=== PATIENT | female | born 1930 | race Two or more races ===

== ENCOUNTER 2017-02-21 19:11 | Observation (INO) | payer BC, MEDICARE ==
[2017-02-21] MEDS ORDERED: ASPIRIN 81 MG TABLET, CHEWABLE PO ONE (19:25)
--- NOTE | 2017-02-21 20:37 | ER Document Report ---
ED Medical Screen (RME) - General Chief Complaint: Chest Pain Stated Complaint: CHEST PAIN Notes: The patient is an 86-year-old female, past medical history hypertension, CAD s/ p stents in 2007, presents with an episode of left-sided chest pain radiating to her right shoulder that started while she was watching TV earlier today. She took a baby aspirin at home. The pain resolved after she arrived to the emergency room and was given 3 baby aspirin. She denies current chest pain, shortness of breath, fevers, current back pain, numbness, tingling, nausea, vomiting or abdominal pain. I have greeted and performed a rapid initial assessment of this patient. A comprehensive ED assessment and evaluation of the patient, analysis of test results and completion of the medical decision making process will be conducted by additional ED providers. - Related Data Allergies/Adverse Reactions: No Known Allergies Allergy (Unverified 02/21/17 19:22) Past Medical History Renal/ Medical History: Denies: Hx Peritoneal Dialysis Physical Exam - Vital signs Vitals: Resp 18 02/21/17 19:22 Course - Vital Signs Vital signs: Temp Pulse Resp BP Pulse Ox 98.0 F 81 18 150/81 H 100 02/21/17 19:23 02/21/17 19:23 02/21/17 19:22 02/21/17 19:23 02/21/17 19:23
[2017-02-21 21:27] LABS: ALANINE AMINOTRANSFERASE 33 U/L (9-52); ALBUMIN 4.9 g/dL (3.5-5.0); ALKALINE PHOSPHATASE 68 U/L (38-126); ANION GAP 13 (5-19); ASPARTATE AMINO TRANSFERASE 33 U/L (14-36); BILIRUBIN,DIRECT 0.2 mg/dL (0.0-0.4); BILIRUBIN,TOTAL 0.5 mg/dL (0.2-1.3); BLOOD UREA NITROGEN 14 mg/dL (7-20); CARBON DIOXIDE 25 mmol/L (22-30); CHLORIDE 104 mmol/L (98-107); CREATINE KINASE 40 U/L (30-135); CREATININE RESULT 0.55 mg/dL (0.52-1.25); GLUCOSE 102 mg/dL (75-110); LIPASE 260.5 U/L (23-300); SODIUM 141.7 mmol/L (137-145); TOTAL PROTEIN 7.5 g/dL (6.3-8.2)
[2017-02-21 21:37] LABS: TROPONIN I < 0.012 ng/mL
--- NOTE | 2017-02-21 22:03 | ER Document Report ---
ED General - General Chief Complaint: Chest Pain Stated Complaint: CHEST PAIN Notes: Patient is a 86 year old female presents with complaint of sudden onset of left- sided chest pain rated into her right shoulder. She said it radiated from the left side across her right side and into right shoulder. She says it lasted a few hours. It started while she was watching TV. Nothing made the pain better or worse. She has history of coronary disease. She is to stents. These were placed in 2007. Her last stress test was 2 years ago in [place]. No fevers. No infections. Her data designer is Dr. Berrios at [facility]. She is currently pain-free. - Related Data Allergies/Adverse Reactions: No Known Allergies Allergy (Unverified 02/21/17 19:22) Past Medical History - Social History Smoking Status: Never Smoker Frequency of alcohol use: None Drug Abuse: None Family History: Reviewed & Not Pertinent Renal/ Medical History: Denies: Hx Peritoneal Dialysis Review of Systems - Review of Systems Notes: My Normal Review Basic REVIEW OF SYSTEMS: CONSTITUTIONAL : Denies fever, chills, or sweats. Denies recent illness. EENT: Denies eye, ear, throat, or mouth pain or symptoms. Denies nasal or sinus congestion. CARDIOVASCULAR: Chest pain RESPIRATORY: Denies cough, cold, or chest congestion. Denies shortness of breath, difficulty breathing, or wheezing. GASTROINTESTINAL: Denies abdominal pain. Denies nausea, vomiting, or diarrhea. MUSCULOSKELETAL: Denies neck or back pain or joint pain or swelling. SKIN: Denies rash or skin lesions. NEUROLOGICAL: Denies altered mental status or loss of consciousness. Denies headache. Denies weakness or paralysis or loss of use of either side. Denies problems with gait or speech. Denies sensory or motor loss.. ALL OTHER SYSTEMS REVIEWED AND NEGATIVE. Physical Exam - Vital signs Vitals: Resp 18 02/21/17 19:22 - Notes Notes: General Appearance: Well nourished, alert, cooperative, no acute distress, no obvious discomfort. Vitals: reviewed, See vital signs table. Head: no swelling or tenderness to the head Eyes: PERRL, EOMI, Conjuctiva clear Mouth: No decreasd moisture Neck: Supple, no neck tenderness, No thyromegaly Lungs: No wheezing, No rales, No rhonci, No accessory muscle use, good air exchange bilaterally. Heart: Normal rate, Regular rythm, No murmur, no rub Chest wall: No rib useful pain to palpation of anterior chest wall. Abdomen: Normal BS, soft, No rigidity, No abdominal tenderness, No guarding, no rebound, no abdominal masses, no organomegaly Extremities: strength 5/5 in all extremities, good pulses in all extremities, no swelling or tenderness in the extremities, no edema. Skin: warm, dry, appropriate color, no rash Neuro: speech clear, oriented x 3, normal affect, responds appropriately to questions. Course - Vital Signs Vital signs: Temp Pulse Resp BP Pulse Ox 98.0 F 81 18 150/81 H 100 02/21/17 19:23 02/21/17 19:23 02/21/17 19:22 02/21/17 19:23 02/21/17 19:23 - Laboratory Result Diagrams: 02/21/17 20:45 Laboratory results interpreted by me: 02/21/17 20:45 Calcium 11.0 H - EKG Interpretation by Me Additional EKG results interpreted by me: 02/21/17 22:03 EKG is reviewed and interpreted by me. EKG shows normal sinus rhythm with rate of [address] segment elevation or depression. No ischemic T wave inversions. FL level, QRS duration, QTC intervals are within normal range. No old EKG available for comparison. - Transfer of Care Notes: 02/21/17 22:17 Patient's cardiac enzymes and EKG are negative. She's currently chest pain- free. Feel that observation admission is appropriate being that she is 86 with a history of coronary artery disease and stent placement. I did speak with the hospitalist who agrees with the patient. Dictation of this chart was performed using voice recognition software; therefore, there may be some unintended grammatical errors. Discharge - Discharge Clinical Impression: Chest pain Qualifiers: Chest pain type: unspecified Qualified Code(s): R07.9 - Chest pain, unspecified Condition: Stable Disposition: ADMITTED OBSERVATION Admitting Provider: Hospitalist Unit Admitted: Telemetry
[2017-02-21] MEDS ORDERED: MAG HYDROX/AL HYDROX/SIMETH SUSP 30 ML UDCUP PO PRN (22:16)
[2017-02-21] MEDS ORDERED: NITROGLYCERIN 0.4 MG/TAB 25 TAB/BOTTLE SL PRN (22:16)
[2017-02-21] MEDS ORDERED: HYDRALAZINE HCL INJ/PF 20 MG/1 ML SDV IV PRN (22:22)
[2017-02-21 22:24] LABS: ABSOLUTE EOSINOPHILS # (AUTO) 0.1 10^3/uL (0.0-0.6); ABSOLUTE LYMPHOCYTES (AUTO) 1.8 10^3/uL (0.5-4.7); ABSOLUTE MONOCYTES (AUTO) 0.7 10^3/uL (0.1-1.4); ABSOLUTE NEUT (AUTO) 4.3 10^3/uL (1.7-8.2); BASOPHILS % (AUTO) 0.7 % (0-2); EOSINOPHILS % (AUTO) 0.8 % (0-6); HEMATOCRIT 42.7 % (36.0-47.0); HEMOGLOBIN 13.9 g/dL (12.0-15.5); LYMPHOCYTES % (AUTO) 26.5 % (13-45); MEAN CORPUSCULAR HEMOGLOBIN 24.9 pg (27.0-33.4); MEAN CORPUSCULAR HGB CONC 32.5 g/dL (32.0-36.0); MEAN CORPUSCULAR VOLUME 77 fl (80-97); MONOCYTES % (AUTO) 9.7 % (3-13); RED BLOOD COUNT 5.58 10^6/uL (3.72-5.28); SEGMENTED NEUTROPHILS % (AUTO) 62.3 % (42-78); WHITE BLOOD COUNT 6.9 10^3/uL (4.0-10.5)
[2017-02-21] MEDS ORDERED: LACTULOSE SYRUP 20 GM/30 ML UDCUP PO ONE (22:30)
[2017-02-21] MEDS ORDERED: ATORVASTATIN CALCIUM 80 MG TABLET PO SCH (22:30)
[2017-02-22 03:25] LABS: ABSOLUTE LYMPHOCYTES (AUTO) 1.5 10^3/uL (0.5-4.7); ABSOLUTE MONOCYTES (AUTO) 0.6 10^3/uL (0.1-1.4); ABSOLUTE NEUT (AUTO) 2.8 10^3/uL (1.7-8.2); BASOPHILS % (AUTO) 0.8 % (0-2); EOSINOPHILS % (AUTO) 0.8 % (0-6); HEMOGLOBIN 12.9 g/dL (12.0-15.5); HGB HCT DIFFERENCE -0.3; LYMPHOCYTES % (AUTO) 29.8 % (13-45); MEAN CORPUSCULAR VOLUME 76 fl (80-97); MONOCYTES % (AUTO) 11.8 % (3-13); RED BLOOD COUNT 5.15 10^6/uL (3.72-5.28); RED CELL DISTRIBUTION WIDTH 14.8 % (11.5-14.0); SEGMENTED NEUTROPHILS % (AUTO) 56.8 % (42-78); WHITE BLOOD COUNT 4.9 10^3/uL (4.0-10.5)
[2017-02-22 03:36] LABS: ANION GAP 10 (5-19); BLOOD UREA NITROGEN 11 mg/dL (7-20); CALCIUM 10.3 mg/dL (8.4-10.2); CARBON DIOXIDE 24 mmol/L (22-30); CHLORIDE 109 mmol/L (98-107); CHOLESTEROL 144.82 mg/dL (0-200); CREATINE KINASE 27 U/L (30-135); Direct HDL 68 mg/dL (>40); GLUCOSE 90 mg/dL (75-110); SODIUM 143.2 mmol/L (137-145); TRIGLYCERIDES 46 mg/dL (<150)
[2017-02-22 03:47] LABS: DIRECT LDL 61 mg/dL (<100)
[2017-02-22 03:48] LABS: CREATINE KINASE MB 1.02 ng/mL (<4.55)
[2017-02-22 03:58] LABS: TROPONIN I < 0.012 ng/mL
--- NOTE | 2017-02-22 05:42 | PDOC H&P ---
History of Present Illness Admission Date/PCP: 02/21/17 22:16 BRENNAN ROMAN PA-C Patient complains of: Chest pain with radiation to back and shoulder History of Present Illness: JUNE DAVISON is a 86 year old female with a past medical history of coronary artery disease with a stent in 2007 who had been her usual state of health until approximately 3 hours prior to presentation having intermittent waxing and waning pain which was impossible to characterize on the right side of her chest radiating to the right side of her shoulder and back. No palpitations shortness of breath nausea vomiting. Unable to identify alleviating or exacerbating factors. Patient states her last episode was in 2007 when she had a heart attack. She has had 2 negative treadmill stress test in the last 2 years consecutively. Obtained by cardiology at [facility] in [place] and cardiology in [place]. She denies having symptoms prompting her stress testing. In the emergency room she is pain-free and has an unremarkable workup which is referred to the hospitalist for observation. Patient denies episodes of pain or shortness of breath preventing or interrupting her daily 1 hour walks. She states she looks forward to running on the treadmill. Past Medical History Cardiac Medical History: Reports: Coronary Artery Disease, Hypertension Past Surgical History Past Surgical History: Reports: Cardiac Catheterization, Coronary Stent Social History Information Source: Parent, Relative Lives with: Family Smoking Status: Never Smoker Hx Recreational Drug Use: No Drugs: None Hx Prescription Drug Abuse: No Past Social History Note: Son is at bedside for interpretation - Advance Directive Resuscitation Status: Full Code Family History Family History: Hypertension Parental Family History Reviewed: Yes Children Family History Reviewed: Yes Sibling(s) Family History Reviewed.: Yes Medication/Allergy Allergies/Adverse Reactions: No Known Allergies Allergy (Unverified 02/21/17 19:22) Review of Systems Constitutional: ABSENT: chills, fever(s), headache(s), weight gain, weight loss Eyes: ABSENT: visual disturbances Ears: ABSENT: hearing changes Cardiovascular: ABSENT: chest pain, dyspnea on exertion, edema, orthropnea, palpitations Respiratory: ABSENT: cough, hemoptysis Gastrointestinal: ABSENT: abdominal pain, constipation, diarrhea, hematemesis, hematochezia, nausea, vomiting Genitourinary: ABSENT: dysuria, hematuria Musculoskeletal: ABSENT: joint swelling Integumentary: ABSENT: rash, wounds Neurological: ABSENT: abnormal gait, abnormal speech, confusion, dizziness, focal weakness, syncope Psychiatric: ABSENT: anxiety, depression, homidical ideation, suicidal ideation Endocrine: ABSENT: cold intolerance, heat intolerance, polydipsia, polyuria Hematologic/Lymphatic: ABSENT: easy bleeding, easy bruising Physical Exam Vital Signs: Temp Pulse Resp BP Pulse Ox 97.4 F 67 13 133/81 H 98 02/21/17 22:16 02/22/17 01:59 02/21/17 23:11 02/21/17 23:11 02/21/17 23:11 General appearance: PRESENT: no acute distress, well-developed, well-nourished Head exam: PRESENT: atraumatic, normocephalic Eye exam: PRESENT: conjunctiva pink, EOMI, PERRLA. ABSENT: scleral icterus Ear exam: PRESENT: normal external ear exam Mouth exam: PRESENT: moist, tongue midline Neck exam: ABSENT: carotid bruit, JVD, lymphadenopathy, thyromegaly Respiratory exam: PRESENT: clear to auscultation benny. ABSENT: rales, rhonchi, wheezes Cardiovascular exam: PRESENT: RRR. ABSENT: diastolic murmur, rubs, systolic murmur Pulses: PRESENT: normal dorsalis pedis pul Vascular exam: PRESENT: normal capillary refill GI/Abdominal exam: PRESENT: normal bowel sounds, soft. ABSENT: distended, guarding, mass, organolmegaly, rebound, tenderness Rectal exam: PRESENT: deferred Extremities exam: PRESENT: full ROM. ABSENT: calf tenderness, clubbing, pedal edema Neurological exam: PRESENT: alert, awake, oriented to person, oriented to place , oriented to time, oriented to situation, CN II-XII grossly intact. ABSENT: motor sensory deficit Psychiatric exam: PRESENT: appropriate affect, normal mood. ABSENT: homicidal ideation, suicidal ideation Skin exam: PRESENT: dry, intact, warm. ABSENT: cyanosis, rash Results Laboratory Results: 02/22/17 03:15 02/22/17 03:15 02/22/17 02/22/17 03:15 03:15 WBC 4.9 RBC 5.15 Hgb 12.9 Hct 39.0 MCV 76 L MCH 25.0 L MCHC 33.0 RDW 14.8 H Plt Count 157 Seg Neutrophils % 56.8 Lymphocytes % 29.8 Monocytes % 11.8 Eosinophils % 0.8 Basophils % 0.8 Absolute Neutrophils 2.8 Absolute Lymphocytes 1.5 Absolute Monocytes 0.6 Absolute Eosinophils 0.0 Absolute Basophils 0.0 Sodium 143.2 Potassium 4.0 D Chloride 109 H Carbon Dioxide 24 Anion Gap 10 BUN 11 Creatinine 0.50 L Est GFR ( Amer) > 60 Est GFR (Non-Af Amer) > 60 Glucose 90 Calcium 10.3 H Triglycerides 46 Cholesterol 144.82 LDL Cholesterol Direct 61 VLDL Cholesterol 9.0 L HDL Cholesterol 68 02/22/17 02/22/17 03:15 03:15 Creatine Kinase 27 L CK-MB (CK-2) 1.02 Troponin I < 0.012 Impressions: Chest X-Ray 02/21/17 20:39 IMPRESSION: No acute cardiopulmonary findings. Assessment & Plan - Diagnosis (1) Chest pain Qualifiers: Chest pain type: unspecified Qualified Code(s): R07.9 - Chest pain, unspecified Is this a current diagnosis for this admission?: YesPlan: Atypical chest pain with atypical history I'll proceed with observation with chest pain care set evaluation of acute coronary syndrome and risk factors for coronary artery disease, obtaining medical records prior to consideration of further testing (2) Hypertension Is this a current diagnosis for this admission?: YesPlan: Outpatient regiment with when necessary TONIO inhibitor - Time Time Spent: 30 to 50 Minutes
[2017-02-22] MEDS ORDERED: HEPARIN SOD (PORCINE) 5,000 UNIT/ML 1 ML SYRINGE SUBCUT SCH (06:00)
--- NOTE | 2017-02-22 08:31 | EKG REPORT ---
SEVERITY:- NORMAL ECG - SINUS RHYTHM : Confirmed by: Dat Kline MD 22-Feb-2017 08:30:36
[2017-02-22 09:19] VITALS: BP 128/65
[2017-02-22 09:35] LABS: CREATINE KINASE MB 0.98 ng/mL (<4.55)
[2017-02-22 09:43] LABS: TROPONIN I < 0.012 ng/mL
[2017-02-22] MEDS ORDERED: AMLODIPINE BESYLATE 10 MG TABLET PO SCH (10:00)
[2017-02-22] MEDS ORDERED: DOCUSATE SODIUM 100 MG CAPSULE PO SCH (10:00)
[2017-02-22] MEDS ORDERED: METOPROLOL TARTRATE 50 MG TABLET PO SCH ×2 (10:00)
[2017-02-22] MEDS ORDERED: LISINOPRIL 10 MG TABLET PO SCH (10:00)
[2017-02-22] MEDS ORDERED: (PENDING PHARMACY ID) (Lisinopril [Zestril] 20 MG) PO SCH (10:00)
[2017-02-23] MEDS ORDERED: ASPIRIN 81 MG TABLET, CHEWABLE PO SCH (10:00)
--- NOTE | 2017-02-23 12:06 | PDOC DISCHARGE SUMMARY ---
General - Admit/Disc Date/PCP Admission Date/Primary Care Provider: 02/21/17 22:16 BRENNAN ROMAN PA-C Outpatient wrapper and preserver: Dr. Berrios Discharge Date: 02/22/17 - Discharge Diagnosis (1) Chest pain Is this a current diagnosis for this admission?: Yes (2) Coronary artery disease Is this a current diagnosis for this admission?: Yes (3) Hypertension Is this a current diagnosis for this admission?: Yes - Additional Information Resuscitation Status: Full Code Discharge Diet: As Tolerated, Cardiac Discharge Activity: Activity As Tolerated Home Medications: Amlodipine Besylate [Norvasc 10 mg Tablet] 10 mg PO DAILY 02/22/17 Aspirin [Aspirin 81 mg Chewable Tablet] 81 mg PO DAILY 02/22/17 Atorvastatin Calcium [Lipitor 20 mg Tablet] 02/22/17 Lisinopril [Zestril] 20 mg PO DAILY 02/22/17 Metoprolol Tartrate [Lopressor 50 mg Tablet] 50 mg PO BID 02/22/17 Nitroglycerin [Nitrostat 0.4 mg (1/150 Gr) Tabs 25/Bottle] 1 tab SL Q5MP PRN #0 bottle 02/22/17 History of Present Illness Patient complains of: Chest pain History of Present Illness: JUNE DAVISON is a 86 year old female with a past medical history of coronary artery disease with a stent in 2007 who had been her usual state of health until approximately 3 hours prior to presentation having intermittent waxing and waning pain which was impossible to characterize on the right side of her chest radiating to the right side of her shoulder and back. No palpitations shortness of breath nausea vomiting. Unable to identify alleviating or exacerbating factors. Patient states her last episode was in 2007 when she had a heart attack. She has had 2 negative treadmill stress test in the last 2 years consecutively. Obtained by cardiology at [facility] in [place] and cardiology in [place]. She denies having symptoms prompting her stress testing. In the emergency room she is pain-free and has an unremarkable workup which is referred to the hospitalist for observation. Patient denies episodes of pain or shortness of breath preventing or interrupting her daily 1 hour walks. She states she looks forward to running on the treadmill. Hospital Course Hospital Course: The patient was observed in a continues telemetry unit, serial cardiac enzymes were obtained which were nonsuggestive. The patient's EKG revealed no acute changes and the patient had no events on cafeteria monitor. Patient had no further replication of symptoms. The patient is followed by Dr. Berrios cardiology here in [place]. The patient has declined staying overnight for cardiac stress test and would like to follow-up of with her primary wrapper and preserver in outpatient basis given her resolution of symptoms. Physical Exam Vital Signs: Temp Pulse Resp BP Pulse Ox 97.9 F 64 18 128/65 H 99 02/22/17 10:38 02/22/17 10:38 02/22/17 10:38 02/22/17 10:38 02/22/17 10:38 Intake & Output 02/21/17 02/22/17 02/23/17 23:59 23:59 23:59 Intake Total 3 Balance 3 Weight 54.2 kg General appearance: PRESENT: no acute distress, cooperative, well-developed, well-nourished Head exam: PRESENT: atraumatic, normocephalic Eye exam: PRESENT: conjunctiva pink, EOMI, PERRLA. ABSENT: scleral icterus Ear exam: PRESENT: normal external ear exam Mouth exam: PRESENT: moist, tongue midline Neck exam: ABSENT: carotid bruit, JVD, lymphadenopathy, thyromegaly Respiratory exam: PRESENT: clear to auscultation benny, symmetrical, unlabored. ABSENT: rales, rhonchi, tachypnea, wheezes Cardiovascular exam: PRESENT: RRR. ABSENT: diastolic murmur, rubs, systolic murmur Pulses: PRESENT: normal dorsalis pedis pul Vascular exam: PRESENT: normal capillary refill GI/Abdominal exam: PRESENT: normal bowel sounds, soft. ABSENT: distended, guarding, mass, organolmegaly, rebound, tenderness Rectal exam: PRESENT: deferred Extremities exam: PRESENT: full ROM. ABSENT: calf tenderness, clubbing, pedal edema Neurological exam: PRESENT: alert, awake, oriented to person, oriented to place , oriented to time, oriented to situation, CN II-XII grossly intact. ABSENT: motor sensory deficit Psychiatric exam: PRESENT: appropriate affect, normal mood. ABSENT: homicidal ideation, suicidal ideation Skin exam: PRESENT: dry, intact, warm. ABSENT: cyanosis, rash Results Laboratory Results: Labs- Last Values WBC 4.9 10^3/uL (4.0-10.5) 02/22/17 03:15 RBC 5.15 10^6/uL (3.72-5.28) 02/22/17 03:15 Hgb 12.9 g/dL (12.0-15.5) 02/22/17 03:15 Hct 39.0 % (36.0-47.0) 02/22/17 03:15 MCV 76 fl (80-97) L 02/22/17 03:15 MCH 25.0 pg (27.0-33.4) L 02/22/17 03:15 MCHC 33.0 g/dL (32.0-36.0) 02/22/17 03:15 RDW 14.8 % (11.5-14.0) H 02/22/17 03:15 Plt Count 157 10^3/uL (150-450) 02/22/17 03:15 Seg Neutrophils % 56.8 % (42-78) 02/22/17 03:15 Lymphocytes % 29.8 % (13-45) 02/22/17 03:15 Monocytes % 11.8 % (3-13) 02/22/17 03:15 Eosinophils % 0.8 % (0-6) 02/22/17 03:15 Basophils % 0.8 % (0-2) 02/22/17 03:15 Absolute Neutrophils 2.8 10^3/uL (1.7-8.2) 02/22/17 03:15 Absolute Lymphocytes 1.5 10^3/uL (0.5-4.7) 02/22/17 03:15 Absolute Monocytes 0.6 10^3/uL (0.1-1.4) 02/22/17 03:15 Absolute Eosinophils 0.0 10^3/uL (0.0-0.6) 02/22/17 03:15 Absolute Basophils 0.0 10^3/uL (0.0-0.2) 02/22/17 03:15 Sodium 143.2 mmol/L (137-145) 02/22/17 03:15 Potassium 4.0 mmol/L (3.6-5.0) D 02/22/17 03:15 Chloride 109 mmol/L (98-107) H 02/22/17 03:15 Carbon Dioxide 24 mmol/L (22-30) 02/22/17 03:15 Anion Gap 10 (5-19) 02/22/17 03:15 BUN 11 mg/dL (7-20) 02/22/17 03:15 Creatinine 0.50 mg/dL (0.52-1.25) L 02/22/17 03:15 Est GFR ( Amer) > 60 (>60) 02/22/17 03:15 Est GFR (Non-Af Amer) > 60 (>60) 02/22/17 03:15 Glucose 90 mg/dL (75-110) 02/22/17 03:15 Calcium 10.3 mg/dL (8.4-10.2) H 02/22/17 03:15 Total Bilirubin 0.5 mg/dL (0.2-1.3) 02/21/17 20:45 Direct Bilirubin 0.2 mg/dL (0.0-0.4) 02/21/17 20:45 Indirect Bilirubin Not Reportable 02/21/17 20:45 Neonat Total Bilirubin Not Reportable 02/21/17 20:45 AST 33 U/L (14-36) 02/21/17 20:45 ALT 33 U/L (9-52) 02/21/17 20:45 Alkaline Phosphatase 68 U/L (38-126) 02/21/17 20:45 Creatine Kinase 27 U/L (30-135) L 02/22/17 03:15 CK-MB (CK-2) 0.98 ng/mL (<4.55) 02/22/17 08:51 Troponin I < 0.012 ng/mL 02/22/17 08:51 NT-Pro-B Natriuret Pep 56 pg/mL (<450) 02/21/17 20:45 Total Protein 7.5 g/dL (6.3-8.2) 02/21/17 20:45 Albumin 4.9 g/dL (3.5-5.0) 02/21/17 20:45 Triglycerides 46 mg/dL (<150) 02/22/17 03:15 Cholesterol 144.82 mg/dL (0-200) 02/22/17 03:15 LDL Cholesterol Direct 61 mg/dL (<100) 02/22/17 03:15 VLDL Cholesterol 9.0 mg/dL (10-31) L 02/22/17 03:15 HDL Cholesterol 68 mg/dL (>40) 02/22/17 03:15 Lipase 260.5 U/L (23-300) 02/21/17 20:45 Impressions: Chest X-Ray 02/21/17 20:39 IMPRESSION: No acute cardiopulmonary findings. Qualifiers PATEINT BEING DISCHARGED WITH ANY OF THE FOLLOWING DIAGNOSIS?: No Plan Discharge Plan: The patient is follow with her wrapper and preserver within one week for hospital follow- up. Time Spent: Greater than 30 Minutes
== END 2017-02-22 11:14 | disposition home or self-care (01) ==
LOC: ER 19:11 → EH 22:16 → 5 02-22 01:40
PROVIDERS: ADMIT Internal Medicine; ATTEND Internal Medicine
DX: R07.89 Other chest pain (principal); I25.10 Atherosclerotic heart disease of native coronary artery without angina pectoris; I10 Essential (primary) hypertension; I25.2 Old myocardial infarction; Z79.899 Other long term (current) drug therapy; Z79.82 Long term (current) use of aspirin; Z95.5 Presence of coronary angioplasty implant and graft; Z82.49 Family history of ischemic heart disease and other diseases of the circulatory system
CPT/HCPCS: 93005; 99285; 36415 ×2; 82553 ×2; 82550 ×2; 83690; 85025 ×2; 80076; 80048 ×2; 84484 ×2; 80061; 83880; 71020; 93010; G0378 ×2; J1644; J3490

== ENCOUNTER 2020-03-02 07:07 | Emergency (ER) | payer MEDICARE, OTHER ==
[2020-03-02 08:09] LABS: ABSOLUTE MONOCYTES (AUTO) 0.3 10^3/uL (0.1-1.4); ABSOLUTE NEUT (AUTO) 3.7 10^3/uL (1.7-8.2); BASOPHILS % (AUTO) 0.8 % (0-2); EOSINOPHILS % (AUTO) 0.5 % (0-6); HEMATOCRIT 41.9 % (36.0-47.0); HEMOGLOBIN 14.1 g/dL (12.0-15.5); LYMPHOCYTES % (AUTO) 19.4 % (13-45); MEAN CORPUSCULAR HGB CONC 33.6 g/dL (32.0-36.0); MEAN CORPUSCULAR VOLUME 77 fl (80-97); MONOCYTES % (AUTO) 5.2 % (3-13); PLATELET COUNT 149 10^3/uL (150-450); RED BLOOD COUNT 5.42 10^6/uL (3.72-5.28); RED CELL DISTRIBUTION WIDTH 16.6 % (11.5-14.0); SEGMENTED NEUTROPHILS % (AUTO) 74.1 % (42-78); TOTAL CELLS COUNTED % (AUTO) 100 %; WHITE BLOOD COUNT 5.1 10^3/uL (4.0-10.5)
[2020-03-02 08:30] LABS: ALBUMIN 4.6 g/dL (3.5-5.0); ALKALINE PHOSPHATASE 61 U/L (38-126); ANION GAP 7 (5-19); ASPARTATE AMINO TRANSFERASE 25 U/L (14-36); BILIRUBIN,TOTAL 0.6 mg/dL (0.2-1.3); BLOOD UREA NITROGEN 17 mg/dL (7-20); CALCIUM 10.9 mg/dL (8.4-10.2); CARBON DIOXIDE 26 mmol/L (22-30); CHLORIDE 105 mmol/L (98-107); GLUCOSE 125 mg/dL (75-110); POTASSIUM 3.7 mmol/L (3.6-5.0); TOTAL PROTEIN 7.2 g/dL (6.3-8.2)
--- NOTE | 2020-03-02 08:38 | RADIOLOGY REPORT (SQ) ---
EXAM DESCRIPTION: CT HEAD WITHOUT IMAGES COMPLETED DATE/TIME: 03/02/2020 8:22 am REASON FOR STUDY: dizzy COMPARISON: None. TECHNIQUE: Axial images acquired through the brain without intravenous contrast. Images reviewed wi th bone, brain and subdural windows. Additional sagittal and coronal reconstructions were generated. Images stored on PACS. All CT scanners at this facility use dose modulation, iterative reconstruction, and/or weight based d osing when appropriate to reduce radiation dose to as low as reasonably achievable (ALARA). [facility]: Dose Right [facility]: CareDose [facility]: Dose Right [facility]: Teradose 4D [facility]: [employer] RADIATION DOSE: CT Rad equipment meets quality standard of care and radiation dose reduction techniq ues were employed. CTDIvol: 53.2 mGy. DLP: 964 mGy-cm. mGy. LIMITATIONS: None. FINDINGS: VENTRICLES: Normal size and contour for patient age. CEREBRUM: No masses. No hemorrhage. No midline shift. No evidence for acute infarction. Normal gra y/white matter differentiation. No areas of low density in the white matter. CEREBELLUM: No masses. No hemorrhage. No alteration of density. No evidence for acute infarction. EXTRAAXIAL SPACES: No fluid collections. No masses. Mild prominence compatible with parenchymal vol ume loss. ORBITS AND GLOBE: No intra- or extraconal masses. Normal contour of globe without masses. CALVARIUM: No fracture. PARANASAL SINUSES: No fluid or mucosal thickening. SOFT TISSUES: Few scattered soft tissue nodules overlying the bilateral parietal calvarium with scatt ered internal calcifications, possibly sebaceous cyst. OTHER: No other significant finding. IMPRESSION: No evidence of acute intracranial process. EVIDENCE OF ACUTE STROKE: NO. COMMENT: Quality ID # [id number]: Final reports with documentation of one or more dose reduction techniques (e.g., Automated exposure control, adjustment of the mA and/or kV according to patient size, use of iterative reconstruction technique) TECHNICAL DOCUMENTATION: JOB ID: [id number] 2010 [employer]- All Rights Reserved Reading location - IP/workstation name: [email or web address]
[2020-03-02] MEDS ORDERED: MECLIZINE HCL 25 MG TABLET PO ONE (08:51)
[2020-03-02] MEDS ORDERED: ONDANSETRON HCL INJ/PF 4 MG/2 ML SDV IV ONE (09:29)
[2020-03-02 11:58] LABS: AMORPHOUS SEDIMENT,URINE TRACE /HPF; APPEARANCE,URINE SLIGHTLY-CLOUDY; BILIRUBIN,URINE NEGATIVE (NEGATIVE); COLOR,URINE YELLOW; GLUCOSE, URINE NEGATIVE (NEGATIVE); KETONES,URINE TRACE mg/dL (NEGATIVE); PROTEIN,URINE NEGATIVE (NEGATIVE); URINE SPECIFIC GRAVITY 1.008; UROBILINOGEN,URINE NEGATIVE mg/dL (<2.0)
--- NOTE | 2020-03-02 12:32 | RADIOLOGY REPORT (SQ) ---
EXAM DESCRIPTION: MRI HEAD WITHOUT IMAGES COMPLETED DATE/TIME: 03/02/2020 12:12 pm REASON FOR STUDY: dizzy COMPARISON: None. TECHNIQUE: Multiplanar imaging includes non-contrasted T1, T2, FLAIR, and diffusion with ADC map seq uences. Images stored on PACS. LIMITATIONS: None. FINDINGS: ANATOMY: No anomalies. Normal vascular flow voids. Pituitary fossa normal. CSF SPACES: Normal symmetric ventricular system. Mild prominence of the extra-axial space compatible with parenchymal volume loss. CEREBRUM: Sulci and gyri normal in size and contour. Minimal nonspecific periventricular FLAIR signa l hyperintensity, likely sequelae of microangiopathic disease. No evidence of hemorrhage, mass, or e xtraaxial fluid collection. POSTERIOR FOSSA: No signal alteration. No hemorrhage. No edema, masses or mass effect. Internal nettie tory canals, cerebello-pontine angles, mastoids normal. DIFFUSION IMAGING: Negative for acute or sub-acute infarction. ORBITS: No masses. Globes normal. Bilateral cataract surgery. PARANASAL SINUSES: No fluid levels. Mucosa normal. OTHER: 1.0 cm calcified lesion along the left parietal calvarium possibly dural calcifications or sma ll calcified meningioma. Multiple partially calcified subcutaneous lesions overlying the bilateral p arietal calvarium, possibly sebaceous cysts. IMPRESSION: No evidence of acute infarct or other acute intracranial process. EVIDENCE OF ACUTE STROKE: NO. TECHNICAL DOCUMENTATION: JOB ID: [id number] 2010 [employer]- All Rights Reserved Reading location - IP/workstation name: [email or web address]
--- NOTE | 2020-03-02 12:55 | ER Document Report ---
ED Dizziness/Weakness - General Chief Complaint: Dizziness Stated Complaint: DIZZINESS Time Seen by Provider: 03/02/20 07:36 Primary Care Provider: BRENNAN ROMAN PA-C [Primary Care Provider] - Follow up as needed Information source: Patient TRAVEL OUTSIDE OF THE [place] IN LAST 30 DAYS: No - HPI Notes: Patient presents with dizziness. She states she feels lightheaded but the room is not spinning. This started last night. It is continued. It is worse when she tries to ambulate and better when she does not. There is no no radiation of the symptoms. They are moderate. No previous history of vertigo or dizziness. No known falls or trauma. No known coronavirus exposures. No cough cold congestion. No fevers or rashes. She denies any pain especially headaches. She is had no vision changes. No ear pain. The symptoms have been relatively constant. - Related Data Allergies/Adverse Reactions: No Known Allergies Allergy (Unverified 02/21/17 19:22) Past Medical History - General Information source: Patient, Relative - Social History Smoking Status: Never Smoker Frequency of alcohol use: None Drug Abuse: None Family History: Hypertension Patient has suicidal ideation: No Patient has homicidal ideation: No - Past Medical History Cardiac Medical History: Reports: Hx Coronary Artery Disease, Hx Hypertension Renal/ Medical History: Denies: Hx Peritoneal Dialysis Past Surgical History: Reports: Hx Cardiac Catheterization - STENT, Hx Coronary Stent - Immunizations Hx Diphtheria, Pertussis, Tetanus Vaccination: Yes Review of Systems - Review of Systems Constitutional: denies: Chills, Fever Cardiovascular: denies: Chest pain, Palpitations Respiratory: denies: Cough, Short of breath -: Yes All other systems reviewed and negative Physical Exam - Vital signs Vitals: Temp Pulse Resp BP Pulse Ox 97.6 F 96 16 150/83 H 100 03/02/20 07:12 03/02/20 07:12 03/02/20 07:12 03/02/20 07:12 03/02/20 07:12 Interpretation: Normal - General General appearance: Appears well, Alert - HEENT Head: Normocephalic, Atraumatic Eyes: Normal Pupils: PERRL - Respiratory Respiratory status: No respiratory distress Chest status: Nontender Breath sounds: Normal Chest palpation: Normal - Cardiovascular Rhythm: Regular Heart sounds: Normal auscultation Murmur: No - Abdominal Inspection: Normal Distension: No distension Bowel sounds: Normal Tenderness: Nontender Organomegaly: No organomegaly - Back Back: Normal, Nontender - Extremities General upper extremity: Normal inspection, Nontender, Normal color, Normal ROM, Normal temperature General lower extremity: Normal inspection, Nontender, Normal color, Normal ROM, Normal temperature, Normal weight bearing. No: Chetna's sign - Neurological Neuro grossly intact: Yes Cognition: Normal Orientation: AAOx4 [place]yla Coma Scale Eye Opening: Spontaneous [place] Coma Scale Verbal: Oriented [place] Coma Scale Motor: Obeys Commands Nyla Coma Scale Total: 15 Speech: Normal Cranial nerves: Normal Cerebellar coordination: Normal. 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 No: Pronator drift Sensory: Normal - Psychological Associated symptoms: Normal affect, Normal mood - Skin Skin Temperature: Warm Skin Moisture: Dry Skin Color: Normal Course - Re-evaluation Re-evalutation: 03/02/20 12:54 Patient presents with lightheadedness. She states it is now getting better. She has had meclizine here. No discharge her home with. Her neurological exam is normal. Head CT and head MRI are also normal. No evidence of infection. EKG has some ST depression however it is not significantly changed from previous EKG. Patient has had no chest pain or shortness of breath. She denies any pain whatsoever. - Vital Signs Vital signs: Temp Pulse Resp BP Pulse Ox 97.6 F 85 22 H 149/77 H 98 03/02/20 07:12 03/02/20 07:56 03/02/20 11:01 03/02/20 11:00 03/02/20 11:01 - Laboratory Result Diagrams: 03/02/20 07:50 03/02/20 07:50 Laboratory results interpreted by me: 03/02/20 03/02/20 03/02/20 07:50 07:50 11:44 RBC 5.42 H MCV 77 L MCH 26.0 L RDW 16.6 H Plt Count 149 L Glucose 125 H Calcium 10.9 H Urine Ketones TRACE H - Diagnostic Test Radiology reviewed: Image reviewed, Reports reviewed - EKG Interpretation by Me EKG shows normal: Sinus rhythm Rate: Normal - 82 Rhythm: NSR [place]/QRS: No: Right axis deviation, Left axis deviation When compared to previous EKG there are: No significant change - Patient has ST depression diffusely on this EKG however it was present on previous EKG as well. Previous EKG is dated 02/21/2017 Discharge - Discharge Clinical Impression: Dizziness Condition: Stable Disposition: HOME, SELF-CARE Instructions: Dizziness ([facility]), Meclizine ([facility]) Additional Instructions: Please call your primary care physician as soon as possible. If you have persistent problems with being lightheaded or dizzy please discuss referral to neurology with your primary care doctor. Prescriptions: Meclizine HCl 25 mg PO Q6 PRN 6 Days #12 tablet PRN Reason: Referrals: BRENNAN ROMAN PA-C [Primary Care Provider] - Follow up in 3-5 days
[2020-03-02 13:19] VITALS: BP 131/83
--- NOTE | 2020-03-03 07:24 | EKG REPORT ---
SEVERITY:- ABNORMAL ECG - SINUS RHYTHM CONSIDER POSTERIOR INFARCT BORDERLINE T WAVE ABNORMALITIES : Confirmed by: Liliana Ash 03-Mar-2020 07:24:42
== END 2020-03-02 13:23 | disposition home or self-care (01) ==
LOC: ER 07:07
DX: R42 Dizziness and giddiness (principal); I25.10 Atherosclerotic heart disease of native coronary artery without angina pectoris; I10 Essential (primary) hypertension
CPT/HCPCS: 93005; 99284; 96374; 36415; 85025; 80053; 81001; 84484; 70551; 70450; 93010; A9270; J2405